=== PATIENT | male | born 1975 | race Caucasian/White ===

== ENCOUNTER 2018-09-13 22:34 | Emergency (ER) | payer OTHER ==
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
[2018-09-13] MEDS ORDERED: Sodium Chloride 0.9% 1000 ML 1,000 ML IV STA (23:01)
[2018-09-13 23:06] LABS: BASOPHIL % 0.2 % (0.0-0.4); Basophil (Absolute #) 0.04 (0-0.4); Eosinophil % 0.2 % (0.00-5.0); Eosinophil (Absolute #) 0.05 (0-0.5); Granulocyte Absolute (ANC) 18.74 (1.4-6.9); Granulocytes % 84.1 % (36.0-66.0); Hematocrit 45.8 % (42-50); Hemoglobin 14.9 gm/dl (12.5-18.0); Lymphocyte (Absolute #) 2.06 (1.0-4.6); Lymphocytes % 9.3 % (24.0-44.0); Mean Cell Volume 90.5 fl (78-100); Mean Corpuscular Hemoglobin 29.4 pg (26-32); Mean Corpuscular Hgb Concent. 32.5 g/dl (32-36); Mean Platelet Volume 10.7 fl (6-9.5); Monocyte (Absolute #) 1.37 (0.0-1.3); Monocytes % 6.2 % (0.0-12.0); Platelet Count 272 K/mm3 (150-450); Red Blood Count 5.06 M/mm3 (4.1-5.6); White Blood Count 22.3 K/mm3 (4.0-10.5)
[2018-09-13 23:17] LABS: ANION GAP 15.9 MEQ/L (5-15); BLOOD UREA NITROGEN 15 mg/dL (9-20); CHLORIDE 103 mmol/L (98-107); Calcium 9.4 mg/dL (8.4-10.2); Carbon Dioxide 28 mmol/L (22-30); Creatinine 1 0.94 mg/dL (0.66-1.25); Glucose 119 mg/dL (74-106); Potassium 4.1 mmol/L (3.5-5.1); SODIUM 142 mmol/L (137-145)
[2018-09-13] MEDS ORDERED: Sodium Chloride 0.9% 1000 ML 1,000 ML ONE (23:58)
[2018-09-14] MEDS ORDERED: XYLOCAINE 2% HCL 20 ML MDV ONE (00:31)
[2018-09-14] MEDS ORDERED: MORPHINE SULFATE 4 MG INJ ONE (00:31)
[2018-09-14] MEDS ORDERED: Zofran 4 MG/2 ML VIAL ONE (00:31)
[2018-09-14] MEDS ORDERED: Zofran 4 MG/2 ML VIAL IV ONE (00:37)
[2018-09-14] MEDS ORDERED: MORPHINE SULFATE 4 MG INJ IV ONE (00:37)
[2018-09-14 01:14] VITALS: BP 108/73
[2018-09-14] MEDS ORDERED: BACIGUENT PACKET ONE (01:15)
[2018-09-14] MEDS ORDERED: Augmentin 875-125 Tablet PO ONE (01:18)
[2018-09-14] MEDS ORDERED: Augmentin 875-125 Tablet ONE (01:24)
[2018-09-14 02:03] VITALS: O2SAT 98
[2018-09-14] MEDS ORDERED: Norco 10/325 MG Tablet PO ONE (02:09)
[2018-09-14] MEDS ORDERED: Norco 10/325 MG Tablet ONE (02:11)
[2018-09-14 02:15] VITALS: PULSE 86
[2018-09-14] MEDS ORDERED: BACIGUENT PACKET TP ONE (07:11)
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
== END 2018-09-14 02:21 | disposition home or self-care (01) ==
LOC: ED 22:34
DX: S01.81XA Laceration without foreign body of other part of head, initial encounter (principal); S00.81XA Abrasion of other part of head, initial encounter; S60.519A Abrasion of unspecified hand, initial encounter; S30.810A Abrasion of lower back and pelvis, initial encounter; S20.319A Abrasion of unspecified front wall of thorax, initial encounter; V86.95XA Unspecified occupant of 3- or 4- wheeled all-terrain vehicle (ATV) injured in nontraffic accident, initial encounter; Y93.I9 Activity, other involving external motion; Y92.89 Other specified places as the place of occurrence of the external cause; F41.9 Anxiety disorder, unspecified
CPT/HCPCS: 36415; 70450; 70486; 71260; 72125; 80048; 80307; 84484; 85025; 93005; 96360; 96374; 96375; 99285; J2270; J2405; A9270-GY; G0480